=== PATIENT | female | born 1945 | race Asian ===

== ENCOUNTER 2020-12-23 08:42 | Outpatient (CLI) | payer MEDICARE ==
[~2020-12-23] VITALS: Ht 157.5 cm; Wt 49.0 kg
[2020-12-23] VITALS (14 sets, daily range): BP systolic 121–149; BP diastolic 53–79; PULSE 61–85; TEMP 97.8–98.2
[~2020-12-23 08:42] MED LIST: IRON TABLETS325 MG PO; ONE-A-DAY ESSE1 EACH PO; TAPAZOLE5 MG PO; VITAMIN C500 MG PO
[2020-12-23] MEDS ORDERED: LUTEIN20 M1 PO (09:05)
--- NOTE | 2020-12-23 09:55 | NUR ---
pt to ct per ambulation. Pt positioned in prone position on CT table. Monitors applied and O2 on at 2l/nc.
--- NOTE | 2020-12-23 10:18 | NUR ---
Specimen obtained by Dr Mendoza and placed in formalin. Specimen labeled.
--- NOTE | 2020-12-23 10:26 | NUR ---
Pt arrived to [facility]
--- NOTE | 2020-12-23 10:27 | NUR ---
charge master specialist taking pt back to department for chest xray
--- NOTE | 2020-12-23 10:33 | NUR ---
Pt back in [facility]
--- NOTE | 2020-12-23 12:35 | NUR ---
MD Daja reviewed chest xray - pt cleared to discharge home.
== END 2020-12-23 20:40 | disposition home or self-care (01) ==
LOC: COL.RAD 08:42
DX: R91.1 Solitary pulmonary nodule (principal)
CPT/HCPCS: 32106